=== PATIENT | female | born 1995 | race Caucasian/White ===

== ENCOUNTER 2023-01-14 13:23 | Outpatient (CLI) | payer OTHER, SELFPAY | END 2023-01-14 13:24 | disposition home or self-care (01) | LOC: KYNREF 13:24 | PROVIDERS: PCP Nurse Practitioner Family; Visit Provider Nurse Practitioner Family | DX: Z13.29 Encounter for screening for other suspected endocrine disorder (principal) | CPT/HCPCS: 84443 ==